=== PATIENT | female | born 1980 | race Caucasian/White ===

== ENCOUNTER 2016-05-13 12:54 | Emergency (ER) | payer BC ==
[~2016-05-13] VITALS: Ht 157.5 cm; Wt 58.1 kg
[2016-05-13 14:04] LABS: MCH 30.9 PG (29.0-34.0); MCHC 34.9 G/DL (30.0-36.0); MCV 88.6 FL (83-99); MEAN PLAT.VOLUME 11.4 uM^3 (9.5-12.4); PLATELET COUNT 215 K/uL (156-360); RBC DIS.WIDTH-CV 12.6 % (11.8-14.6); RBC DIS.WIDTH-SD 40.2 % (39-53)
[2016-05-13 14:12] LABS: CHLORIDE 111 mEq/L (99-109); POTASSIUM 4.4 mEq/L (3.7-5.4); SODIUM 139 mEq/L (136-147)
[2016-05-13 14:14] LABS: GLUCOSE 90 mg/dL (70-99)
[2016-05-13 14:15] LABS: ANION GAP 7 MEQ/L (2-14)
[2016-05-13 14:16] LABS: TOTAL BILIRUBIN 0.4 mg/dL (0.0-1.0)
[2016-05-13 14:17] LABS: ALKALINE PHOSPHATASE 49 IU/L (3-129)
[2016-05-13 14:18] LABS: GFR ESTIMATE (CALCULATED) > 59 mL/min/
[2016-05-13 14:19] LABS: UREA NITROGEN (BUN) 13 mg/dL (9-23)
[2016-05-13 14:27] LABS: QUANTITATIVE HCG < 4.0 MIU/ML
[2016-05-13] MEDS ORDERED: PERCOCET 5/31 TABLET PO ×2 (17:35→17:45)
[2016-05-13 17:50] VITALS: BP 141/76
== END 2016-05-13 17:56 | disposition home or self-care (01) ==
LOC: RME 12:54 → EME 12:54 → RME 17:56
PROVIDERS: Nurse Practitioner Family
DX: N83.202 Unspecified ovarian cyst, left side (principal)
CPT/HCPCS: 74177; 76856; 80053; 81003; 84702; 85027; 86850; 86900; 86901; 99281; 99284; J2270; J7040

== ENCOUNTER 2016-06-08 06:45 | Day surgery (SDC) | payer BC ==
[~2016-06-08] VITALS: Ht 157.5 cm; Wt 55.8 kg
[~2016-06-08 06:45] MED LIST: DAILY VALUE1 EACH PO; PERCOCET 5/31 TABLET PO
[2016-06-08 07:32] VITALS: BP 120/71
[2016-06-08] MEDS ORDERED: PERCOCET 5/31 TABLET PO (12:00)
[2016-06-08] MEDS ORDERED: MOTRIN800 MG PO (12:00)
[2016-06-08 13:50] VITALS: BP 108/60
[2016-06-08 14:50] VITALS: BP 96/54
[2016-06-08 16:18] VITALS: BP 106/65
[2016-06-08] MEDS ORDERED: KEFLEX500 MG PO (16:44)
[2016-06-08 17:13] VITALS: BP 105/64
== END 2016-06-08 17:16 | disposition home or self-care (01) ==
LOC: SDC 06:45
DX: N83.12 Corpus luteum cyst of left ovary (principal); N83.8 Other noninflammatory disorders of ovary, fallopian tube and broad ligament; N39.3 Stress incontinence (female) (male); R10.2 Pelvic and perineal pain; J45.909 Unspecified asthma, uncomplicated
CPT/HCPCS: 88307; C1769; C1771; J0131; J0690; J1100; J1170; J1885; J2175; J2250; J2405; J2765; J3010